=== PATIENT | female | born 1995 | race Caucasian/White ===

== ENCOUNTER 2021-01-01 21:27 | Emergency (ER) | payer OTHER ==
[2021-01-01 22:59] LABS: HEMOGLOBIN 14.6 gm/dl (12.3-15.3); RED BLOOD COUNT 4.65 M/UL (4.00-5.10); WHITE BLOOD COUNT 15.1 K/UL (4.5-11.0)
[2021-01-01 23:13] LABS: BUN/CREATININE RATIO 21 (0-10)
[2021-01-02] MEDS ORDERED: ZOFRAN4 MG PO (01:08)
[2021-01-02] MEDS ORDERED: OMNICEF 300 MG300 MG PO (01:08)
== END 2021-01-02 01:19 | disposition home or self-care (01) ==
LOC: ER1 21:27 → EDBD 21:27 → ER1 01-02 01:19
PROVIDERS: Physician Assistant
DX: N39.0 Urinary tract infection, site not specified (principal); I10 Essential (primary) hypertension; Z90.49 Acquired absence of other specified parts of digestive tract; F17.210 Nicotine dependence, cigarettes, uncomplicated
CPT/HCPCS: 80053; 81001; 83605; 83690; 84703; 85025; 87040; 87086; 96374; 96375; 99284; J2405; Q9967